=== PATIENT | female | born 1960 | race Caucasian/White ===

== ENCOUNTER 2018-11-13 10:44 | Outpatient (CLI) | payer OTHER | END 2018-11-13 15:00 | disposition home or self-care (01) | LOC: LAB 10:44 | DX: J11.1 Influenza due to unidentified influenza virus with other respiratory manifestations (principal); R10.84 Generalized abdominal pain; N39.0 Urinary tract infection, site not specified ==

== ENCOUNTER 2019-04-07 10:54 | Outpatient (CLI) | payer OTHER | END 2019-04-07 11:02 | disposition home or self-care (01) | LOC: LAB 10:54 | DX: J11.1 Influenza due to unidentified influenza virus with other respiratory manifestations (principal); R05 Cough ==